=== PATIENT | female | born 1990 | race African-American/Black ===

== ENCOUNTER 2017-02-17 21:58 | Emergency (ER) | payer OTHER ==
[2017-02-17] MEDS ORDERED: Lidocaine 1% (PF) 30 ML VIAL ONE (22:25)
== END 2017-02-17 23:43 | disposition home or self-care (01) ==
LOC: ERS 21:58
DX: L03.011 Cellulitis of right finger (principal); I10 Essential (primary) hypertension; Z79.899 Other long term (current) drug therapy
CPT/HCPCS: 10060; J2001

== ENCOUNTER 2018-06-13 13:47 | Outpatient (CLI) | payer OTHER ==
--- NOTE | 2018-06-13 14:54 | ULT ---
PELVIC ULTRASOUND: History: Dysfunctional uterine bleeding. FINDINGS: Real-time imaging of the pelvis was obtained both transabdominally as well as with an endovaginal pro be. This shows the uterus measuring 7.7 cm in length. Numerous nabothian cysts are seen Endometrium i s in the 3 mm range. The right and left adnexa are normal in size and show some small follicles. DOPPLER EVALUATION WITH SPECTRAL ANALYSIS: Normal flow is shown to the adnexal regions. IMPRESSION: Essentially unremarkable pelvic ultrasound. Mildly prominent nabothian cysts incidentally noted. POS: [facility]
== END 2018-06-13 13:48 | disposition home or self-care (01) ==
LOC: BICULT 13:47
PROVIDERS: ATTEND Family Medicine
DX: N93.8 Other specified abnormal uterine and vaginal bleeding (principal); N88.8 Other specified noninflammatory disorders of cervix uteri
CPT/HCPCS: 76856